=== PATIENT | male | born 1970 | race Caucasian/White ===

== ENCOUNTER 2022-02-10 09:24 | Inpatient (IN) | payer MEDICAID, SELFPAY ==
[2022-02-10] VITALS (33 sets, daily range): BP systolic 134–213; BP diastolic 91–119; PULSE 61–100; RESP 14–26; TEMP 36.7–37.7; O2SAT 94–98; BMI 24.3
--- NOTE | 2022-02-10 09:31 | CTR_ITS ---
PROCEDURE INFORMATION: Exam: CT Head Without Contrast Exam date and time: 02/10/2022 9:28 AM Age: 51 years old Clinical indication: Weakness, extremity; Right; Additional info: Right sided weakness TECHNIQUE: Imaging protocol: Computed tomography of the head without contrast. Radiation optimization: All CT scans at this facility use at least one of these dose optimization techniques: automated exposure control; mA and/or kV adjustment per patient size (includes targeted exams where dose is matched to clinical indication); or iterative reconstruction. COMPARISON: No relevant prior studies available. RADIATION DOSE METRICS: Total DLP (mGy-cm): 740.4 FINDINGS: Brain: There is suspected old infarct involving the right frontal lobe medially just anterior to the lateral ventricle. Questionable old infarct involving the left basal ganglia. There is mild atrophy and small vessel ischemic changes. There is no intracranial blood. Cerebral ventricles: No ventriculomegaly. Paranasal sinuses: Visualized sinuses are unremarkable. No fluid levels. Mastoid air cells: Visualized mastoid air cells are well aerated. Bones/joints: Unremarkable. No acute fracture. Soft tissues: Unremarkable. CT/CT head wo con* [id number] IMPRESSION: Chronic changes with no acute intracranial blood. Given the findings consider MRI to evaluate for an acute area of ischemia.
--- NOTE | 2022-02-10 09:42 | ECG_ITS ---
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 Measurements Intervals [place] Rate: 74 P: 53 WA: 170 QRS: 61 QRSD: 89 T: 71 QT: 385 QTc: 430 Interpretive Statements SINUS RHYTHM No previous ECG available for comparison Electronically Signed On 02-10-2022 12:39:08 CDT by Yoli Lopez M.D. [id number]
--- NOTE | 2022-02-10 09:46 | ED_ITS ---
HPI - Neuro Symptoms/Deficit General: Chief Complaint: Neuro Symptoms/Deficit Stated Complaint: RIGHT SIDED WEAKNESS Time Seen by Provider: 02/10/22 09:42 History of Present Illness: 51 year-old male presents emergency room via EMS with accelerated hypertension and right-sided deficits that are quite dense this began yesterday at 3 PM and has persisted. He has significant facial paralysis some dysarthria significant weakness and drift in his right arm and leg with ataxia in both limbs. He has some mild sensory loss as well. He is a smoker he is not diabetic he has not previously had a stroke he does have a known history of hypertension he denies any chest pain or shortness of breath no abdominal pain essentially denies any other symptoms. Symptoms began yesterday he had thought they would resolve on their own so he did not seek evaluation until this morning. At the time of presentation he is 18 1/2 hours out from onset Onset (ago): hour(s) Time: 09:24 Location: speech, right face, dysarthria, right arm, right leg and ataxia History of same: No Severity: severe Quality: weak Relieving factors: none Exacerbating factors: none Context: sudden onset On Anticoagulants: No Associated symptoms: Deny chest pain, cough, diaphoresis, fevers/chills, headache(s), anorexia, malaise, nausea, seizures, short of breath, syncope, tingling, vertigo, vomiting or weakness Treatments Prior to Arrival: none Review of Systems Const: Denies: fever(s), chills, malaise or diaphoresis ENMT: Denies: throat pain, ear or mastoid pain, nasal discharge or nasal congestion Card: Denies: chest pain, palpitations, irregular heart rhythm or syncope Resp: Denies: dyspnea, productive cough or non-productive cough GI: Denies: abdominal pain, nausea or vomiting : Denies: flank pain, difficulty urinating, dysuria, urinary frequency or urinary urgency Musc: Denies: neck pain or back pain Skin/Breast: Denies: rash or pruritus Neuro: Denies: headache(s) or vertigo PFS ED PFSH: Medical History (Updated 02/10/22 @ 11:55 by Jimmy Isaacs DO) Hypertension Social History (Updated 02/10/22 @ 09:50 by Jimmy Isaacs DO) Smoking and tobacco status: current every day smoker Alcohol intake: never NIH stroke score NIHSS: Level Of Consciousness - 1a: 0 Level Of Consciousness Questions - 1b: Both Correct Level Of Consciousness Commands - 1c: Both Correct Best Gaze - 2: Normal Visual [place]aley - 3: No Visual Loss Facial Palsy - 4: Partial Paralysis Motor Arm Right - 5: Effort Against [place] Motor Arm Left - 5: No Drift Motor Leg Right - 6: Effort Against [place] Motor Leg Left - 6: No Drift Limb Ataxia - 7: Present In Two Limbs Sensory - 8: Mild To Moderate Loss Best Language - 9: No Aphasia Dysarthia - 10: Mild/Moderate Dysarthia Extinction And Inattention - 11: 0 Score: Total Score: 10 Physical Exam Const: COMMON NORMALS: no acute distress GENERAL APPEARANCE: cooperative and comfortable ORIENTATION/CONSCIOUSNESS: Yes awake, Yes oriented to person, Yes oriented to place and Yes oriented to time HENMT: COMMON NORMALS: normocephalic, atraumatic, hearing grossly normal bilaterally, external ears normal, EAC's normal, TM's normal bilaterally, Normal nasal mucous membranes and turbinates present, moist oral mucous membranes and oropharynx normal HEAD & SCALP: normocephalic and atraumatic NOSE: Normal nasal mucous membranes and turbinates present EXTERNAL EAR: Yes external ears normal EXTERNAL AUDITORY CANAL: EAC's normal TYMPANIC MEMBRANE: TM's normal bilaterally Eye: COMMON NORMALS: Equal, round and reactive pupils present, EOMs intact bilaterally, conjunctivae normal and no scleral icterus CONJUNCTIVA: Yes conjunctivae normal PUPIL: Yes Equal, round and reactive pupils present Neck/C-Spine: COMMON NORMALS: full ROM, no lymphadenopathy, supple and no JVD Resp: COMMON NORMALS: normal respiratory effort, No retractions, No use of accessory muscles and clear to auscultation bilaterally AUSCULTATION: clear to auscultation bilaterally Cardio: COMMON NORMALS: no JVD, regular rate, regular rhythm and No murmurs present (Cardio) RATE: regular rate RHYTHM: regular rhythm GI: COMMON NORMALS: Soft to palpation and No hepatosplenomegaly present AUSCULTATION: Yes normoactive bowel sounds PALPATION: Yes Soft to palpation, No Tenderness to palpation present (GI), No Guarding due to palpation present (GI) and Yes No hepatosplenomegaly present Extremity: COMMON NORMALS: normal to inspection, capillary refill normal, no clubbing, cyanosis or edema, no calf tenderness and no pedal edema Neuro: SENSORIUM/ORIENTATION: Yes oriented to person, Yes oriented to place and Yes oriented to time OTHER: See NIH score Skin: COMMON NORMALS: no rashes or lesions noted GENERAL SKIN EXAM: no rashes or lesions noted Course Vital Signs: Vital signs: Vital Signs Temperature 98.0 F 02/10/22 09:30 Pulse Rate 85 02/10/22 10:22 Respiratory Rate 18 02/10/22 10:22 Blood Pressure 190/102 02/10/22 10:22 Pulse Oximetry 98 02/10/22 10:22 MDM - Neuro Symptoms/Deficit Medical Decision Making Acute CVA most likely the left middle cerebral artery. Patient's symptoms are dense and persistent. For a brief time we had him on nicardipine as his blood pressure was in excess of 200 we titrated that down and then off when his blood pressure began to decrease his pressure remained stable after it was stopped. He has not had any change in his neurologic deficits no improvement or worsening. Stroke score is 10 but he doubts that the timeframe for any thrombolytics and he is not have an embolism on CTA head and neck. Discussed with hospitalist orders written Medical Records I reviewed the patient's medical records. Lab Data I reviewed the patient's lab results. : 02/10/22 08:55 02/10/22 08:[address] 02/10/22 09:31 IMPRESSION: Chronic changes with no acute intracranial blood. Given the findings consider MRI to evaluate for an acute area of ischemia. Head/Neck CTA 02/10/22 09:57 IMPRESSION: No large vessel occlusion. Unremarkable CT head. IMPRESSION: 1. No arterial abnormality. 2. Obscuration of the posterior aspect of the oropharynx. REFERENCES: NASCET CRITERIA. The degree of internal carotid artery stenosis is based on NASCET criteria. Normal is no stenosis. Mild is less than 50% stenosis. Moderate is 50-69% stenosis. Severe is 70% to 99% stenosis. Total occlusion is no detectable patent lumen. Laboratory Results WBC 10.9 10^3/uL (4.0-10.0) H 02/10/22 08:55 RBC 5.55 10^6/uL (4.1-5.3) H 02/10/22 08:55 Hgb 16.8 g/dL (11.7-16.6) H 02/10/22 08:55 Hct 49.3 % (42.0-52.0) 02/10/22 08:55 MCV 88.8 fl (80-94) 02/10/22 08:55 MCH 30.3 pg (28.0-34.0) 02/10/22 08:55 MCHC 34.1 g/dL (30.0-36.0) 02/10/22 08:55 RDW 13.2 % (12.1-15.1) 02/10/22 08:55 Plt Count 384 10^3/cmm (130-400) 02/10/22 08:55 MPV 10.4 fL (7.4-10.4) 02/10/22 08:55 Neut % (Auto) 78.8 % 02/10/22 08:55 Lymph % (Auto) 15.0 % 02/10/22 08:55 [place] % (Auto) 4.9 % 02/10/22 08:55 Eos % (Auto) 0.5 % 02/10/22 08:55 Baso % (Auto) 0.4 % 02/10/22 08:55 Neut # (Auto) 8.62 10^3/uL (1.8-7.7) H 02/10/22 08:55 Lymph # (Auto) 1.6 10^3/uL (0.8-4.8) 02/10/22 08:55 [place] # (Auto) 0.5 10^3/uL (0.2-0.9) 02/10/22 08:55 Eos # (Auto) 0.1 10^3/uL (0.0-0.8) 02/10/22 08:55 Baso # (Auto) 0.0 10^3/uL (0.0-0.1) 02/10/22 08:55 Nucleated RBC % (auto) 0 % 02/10/22 08:55 Nucleated RBCs # 0.0 /100WBC 02/10/22 08:55 PT 13.60 SECONDS (12.1-14.9) 02/10/22 08:55 INR 1.01 (0.8-1.2) 02/10/22 08:55 APTT 33.9 SECONDS (23.9-36.7) 02/10/22 08:55 Sodium 136 mmol/L (136-145) 02/10/22 08:55 Potassium 3.7 mmol/L (3.5-5.1) 02/10/22 08:55 Chloride 96 mmol/L (98-107) L 02/10/22 08:55 Carbon Dioxide 26 mmol/L (22-29) 02/10/22 08:55 Anion Gap 17.7 (5-19) 02/10/22 08:55 BUN 10 mg/dL (6-20) 02/10/22 08:55 Creatinine 0.8 mg/dL (0.7-1.2) 02/10/22 08:55 GFR Calculation 101.9 mL/min (90-130) 02/10/22 08:55 Glucose 128 mg/dL (65-115) H 02/10/22 08:55 POC Glucose 115 mg/dL (70-110) H 02/10/22 10:26 Calculated Osmolality 283 mOsm/kg (285-295) L 02/10/22 08:55 Calcium 9.7 mg/dL (8.5-10.5) 02/10/22 08:55 Total Bilirubin 0.5 mg/dL (0.15-1.2) 02/10/22 08:55 AST 19 U/L (0-40) 02/10/22 08:55 ALT 21 U/L (0-41) 02/10/22 08:55 Alkaline Phosphatase 92 IU/L (40-130) 02/10/22 08:55 Total Protein 8.1 g/dL (6.6-8.7) 02/10/22 08:55 Albumin 4.8 g/dL (3.5-5.2) 02/10/22 08:55 Globulin 3.3 g/dL (1.3-4.6) 02/10/22 08:55 Urine Color Colorless (Yellow) 02/10/22 10:51 Urine Appearance Clear (CLEAR) 02/10/22 10:51 Urine pH 8 (5-7) H 02/10/22 10:51 Ur Specific [place] 1.010 (1.005-1.030) 02/10/22 10:51 Urine Protein Neg (Negative) 02/10/22 10:51 Urine Glucose (UA) Norm (Normal) 02/10/22 10:51 Urine Ketones Negative (Negative) 02/10/22 10:51 Urine Blood Neg (Negative) 02/10/22 10:51 Urine Nitrate Negative (Negative) 02/10/22 10:51 Urine Bilirubin Neg (Negative) 02/10/22 10:51 Prot Sulfosalicylic Acd Negative (Negative) 02/10/22 10:51 Urine Urobilinogen Norm mg/dL (Negative) 02/10/22 10:51 Ur Leukocyte Esterase Negative (Negative) 02/10/22 10:51 Urine Opiates Screen Negative ng/mL (Negative) 02/10/22 10:51 Ur Barbiturates Screen Negative ng/mL (Negative) 02/10/22 10:51 Ur Phencyclidine Scrn Negative ng/mL (Negative) 02/10/22 10:51 Ur Amphetamines Screen Negative ng/mL (Negative) 02/10/22 10:51 U Benzodiazepines Scrn Negative ng/mL (Negative) 02/10/22 10:51 Urine Cocaine Screen Negative ng/mL (Negative) 02/10/22 10:51 U Marijuana (THC) Screen Positive ng/mL (Negative) H 02/10/22 10:51 Discharge Plan Discharge Patient Disposition: Admitted As Inpatient Admit Provider: Robert Garcia Clinical Impression: Cerebrovascular accident, Hypertension Condition: Stable Coding Level of Care Code 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
[2022-02-10] MEDS: nicardipine 20 MG/200 ML PREMIX 50 MG IV (09:53)
--- NOTE | 2022-02-10 09:57 | CTR_ITS ---
PROCEDURE INFORMATION: Exam: CT Angiography Head Without And With Contrast, Arteriography Exam date and time: 02/10/2022 10:10 AM Age: 51 years old Clinical indication: Weakness; Additional info: CVA TECHNIQUE: Imaging protocol: Computed tomographic angiography of the head without and with contrast. Exam focused on the arteries. 3D rendering (Not supervised by radiologist): MIP and/or 3D reconstructed images were created by the technologist. Radiation optimization: All CT scans at this facility use at least one of these dose optimization techniques: automated exposure control; mA and/or kV adjustment per patient size (includes targeted exams where dose is matched to clinical indication); or iterative reconstruction. Contrast material: OMNI 300; Contrast volume: 95 ml; Contrast route: INTRAVENOUS (IV); COMPARISON: CT head wo con* [id number] 02/10/2022 9:28 AM RADIATION DOSE METRICS: Total DLP (mGy-cm): 2429.94 FINDINGS: ANTERIOR CIRCULATION: Right internal carotid artery: Intracranial segment is patent with no significant stenosis or occlusion. No aneurysm. Right middle cerebral artery: No occlusion or significant stenosis. No aneurysm. Right anterior cerebral artery: No occlusion or significant stenosis. No aneurysm. Left internal carotid artery: Intracranial segment is patent with no significant stenosis. No aneurysm. Left middle cerebral artery: No occlusion or significant stenosis. No aneurysm. Left anterior cerebral artery: No occlusion or significant stenosis. No aneurysm. POSTERIOR CIRCULATION: Right vertebral artery: No occlusion or significant stenosis. No aneurysm. Left vertebral artery: No occlusion or significant stenosis. No aneurysm. Basilar artery: No occlusion or significant stenosis. No aneurysm. Right posterior cerebral artery: No occlusion or significant stenosis. No aneurysm. Left posterior cerebral artery: Persistent circulation on the left with a normal posterior cerebral artery. PROCEDURE INFORMATION: Exam: CT Angiography Neck Without And With Contrast Exam date and time: 02/10/2022 10:10 AM Age: 51 years old Clinical indication: Weakness; Additional info: CVA TECHNIQUE: Imaging protocol: Computed tomographic angiography of the neck without and with contrast. 3D rendering (Not supervised by radiologist): MIP and/or 3D reconstructed images were created by the technologist. Radiation optimization: All CT scans at this facility use at least one of these dose optimization techniques: automated exposure control; mA and/or kV adjustment per patient size (includes targeted exams where dose is matched to clinical indication); or iterative reconstruction. Contrast material: OMNI 300; Contrast volume: 95 ml; Contrast route: INTRAVENOUS (IV); COMPARISON: CT head wo con* [id number] 02/10/2022 9:28 AM RADIATION DOSE METRICS: Total DLP (mGy-cm): 2429.94 FINDINGS: Right common carotid artery: No stenosis. No dissection or occlusion. Right internal carotid artery: No stenosis of the extracranial segment. No dissection or occlusion. Right external carotid artery: No occlusion or stenosis of the origin. Left common carotid artery: No stenosis. No dissection or occlusion. Left internal carotid artery: No stenosis of the extracranial segment. No dissection or occlusion. Left external carotid artery: No occlusion or stenosis of the origin. Right vertebral artery: No stenosis. No dissection or occlusion. Left vertebral artery: No stenosis. No dissection or occlusion. Oropharynx: Obscuration of most of the oropharynx which could be due to swallowing or phonation during scanning. Please clinically correlate. Thyroid: 6 mm hypodensity involving the right lobe of the thyroid likely colloid cyst. Soft tissues: Normal. No significant soft tissue swelling. Bones/joints: No acute fracture. CT/CT angio headneck* [id number] IMPRESSION: No large vessel occlusion. Unremarkable CT head. IMPRESSION: 1. No arterial abnormality. 2. Obscuration of the posterior aspect of the oropharynx. REFERENCES: NASCET CRITERIA. The degree of internal carotid artery stenosis is based on NASCET criteria. Normal is no stenosis. Mild is less than 50% stenosis. Moderate is 50-69% stenosis. Severe is 70% to 99% stenosis. Total occlusion is no detectable patent lumen.
[2022-02-10 10:08] LABS: Basophils % 0.4 %; Eosinophils # 0.1 10^3/uL (0.0-0.8); Eosinophils % 0.5 %; Hematocrit 49.3 % (42.0-52.0); Hemoglobin 16.8 g/dL (11.7-16.6); Lymphocytes # 1.6 10^3/uL (0.8-4.8); Mean Corpuscular HGB Conc 34.1 g/dL (30.0-36.0); Mean Corpuscular Hemoglobin 30.3 pg (28.0-34.0); Mean Corpuscular Volume 88.8 fl (80-94); Mean Platelet Volume 10.4 fL (7.4-10.4); Monocytes # 0.5 10^3/uL (0.2-0.9); Monocytes % 4.9 %; Neutrophils # 8.62 10^3/uL (1.8-7.7); Neutrophils % 78.8 %; Nucleated Red Blood Cells % 0 %; Platelet Count 384 10^3/cmm (130-400); Red Blood Count 5.55 10^6/uL (4.1-5.3); Red Cell Distribution Width 13.2 % (12.1-15.1); White Blood Count 10.9 10^3/uL (4.0-10.0)
[2022-02-10] MEDS: iohexol 300 mg/mL 100 mL Btl IV (10:09)
[2022-02-10 10:13] LABS: INR 1.01 (0.8-1.2)
[2022-02-10 10:14] LABS: Partial Thromboplastin Time 33.9 SECONDS (23.9-36.7)
[2022-02-10 10:20] LABS: Alanine Aminotransferase 21 U/L (0-41); Albumin Level 4.8 g/dL (3.5-5.2); Alkaline Phosphatase 92 IU/L (40-130); Anion Gap 17.7 (5-19); Aspartate Amino Transferase 19 U/L (0-40); Blood Urea Nitrogen 10 mg/dL (6-20); Calcium 9.7 mg/dL (8.5-10.5); Carbon Dioxide 26 mmol/L (22-29); Chloride 96 mmol/L (98-107); Globulin 3.3 g/dL (1.3-4.6); Glomerular Filtration Rate 101.9 mL/min (90-130); Glucose 128 mg/dL (65-115); Osmolality Calculated 283 mOsm/kg (285-295); Potassium 3.7 mmol/L (3.5-5.1); Sodium 136 mmol/L (136-145); Total Bilirubin 0.5 mg/dL (0.15-1.2); Total Protein 8.1 g/dL (6.6-8.7)
[2022-02-10 10:28] LABS: Glucose Point of Care 115 mg/dL (70-110)
[2022-02-10 10:57] LABS: Add Urine Microscopic? NO; Charge for UA Resulting for Rev
[2022-02-10 11:01] LABS: Bilirubin Urine Neg (Negative); Blood Urine Neg (Negative); Glucose Urine UA Norm (Normal); Ketones Urine Negative (Negative); Leukocyte Esterase Urine Negative (Negative); Nitrate Urine Negative (Negative); Protein Urine Neg (Negative); Sulfosalicylic Acid Urine Negative (Negative); Urine Appearance Clear (CLEAR); Urine Color Colorless (Yellow); Urobilinogen Urine Norm (Negative); pH Urine 8 (5-7)
[2022-02-10 11:07] LABS: Amphetamines Screen Urine Negative (Negative); Barbiturates Screen Urine Negative (Negative); Benzodiazepines Screen Urine Negative (Negative); Cocaine Screen Urine Negative (Negative); Opiate Screen Urine Negative (Negative); PCP Screen Urine Negative (Negative); THC Screen Urine Positive (Negative)
--- NOTE | 2022-02-10 12:50 | P.HP_ITS ---
Providers/Chief Complaint Admitting Physician: Robert Garcia MD Chief Complaint: RIGHT SIDED WEAKNESS History of Present Illness Eran Shi is a 51 year old male with no significant past medical history was brought in with chief complaint of acute onset of right upper extremity weakness started yesterday around noon and since then it has progressively worsened, He is also having slurred speech. Currently denies any chest pain shortness of breath palpitation headache dizziness nausea vomiting, bowel or bladder dysfunction. Upon arrival in the ER he was worked up for movements and complaint: Pertinent imaging studies: CT head without contrast: There is suspected old infarct involving the right frontal lobe medially just anterior to the lateral ventricle. Questionable old infarct, involving the left basal ganglia. There is mild atrophy and small vessel ischemic changes. There is no intracranial blood. CTA head and neck:No large vessel occlusion. EKG: Sinus rhythm Pertinent labs: WBC 10.9, H&H 16.8 / 49.3 , PLT : 384 , serum sodium 136 and potassium 3.7 BUN/ serum creatinine 10/0.8, random blood sugar 128 Urinalysis clean, U tox positive for marijuana Review of Systems General: Reports: 10 or more systems reviewed and unremarkable except in HPI and below Const: Denies: fever(s), chills, body aches, change in appetite or diaphoresis Card: Denies: palpitations, edema, swelling of feet/ankles, dyspnea on exertion, orthopnea or leg pain with exertion Resp: Denies: dyspnea, productive cough, wheezing or pain on inspiration GI: Denies: abdominal pain, nausea, vomiting, diarrhea or constipation : Denies: flank pain or difficulty urinating Musc: Denies: back pain, extremity pain or extremity swelling Neuro: Denies: headache(s) or confusion Medications/Allergies Home Medications Medication Instructions Recorded Confirmed Last Taken Type No Known Home Medications 02/10/22 02/10/22 Unknown History Allergies Allergy/AdvReac Type Severity Reaction Status Date / Time Penicillins Allergy Unknown Unknown Verified 02/10/22 10:56 PFSH Acute PFSH: Medical History (Updated 02/10/22 @ 11:55 by Jimmy Isaacs DO) Hypertension Social History (Updated 02/10/22 @ 09:50 by Jimmy Isaacs DO) Smoking and tobacco status: current every day smoker Alcohol intake: never Vitals/I&O/Wt Last Vital Signs Temp 98.0 F 02/10/22 09:30 Pulse 85 02/10/22 10:22 Resp 18 02/10/22 10:22 BP 190/102 02/10/22 10:22 Pulse Ox 98 02/10/22 10:22 02/09/22 02/10/22 02/10/22 22:59 06:59 14:59 Intake Total 59.167 / 59.167 Balance 59.167 / 59.167 Weight last 48 hrs Weight 77.111 kg Physical Exam Const: COMMON NORMALS: patient oriented x3 HENMT: COMMON NORMALS: normocephalic and atraumatic HEAD & SCALP: normocephalic and atraumatic Chest: CHEST: Yes Symmetrical chest wall rise Resp: COMMON NORMALS: normal respiratory effort, No retractions, No use of accessory muscles and clear to auscultation bilaterally EFFORT & INSPECTION: Yes symmetric chest movement AUSCULTATION: clear to auscultation bilaterally Cardio: COMMON NORMALS: regular rate, regular rhythm, S1 normal heart sound present, S2 normal heart sound present, No gallops present (Cardio), No murmurs present (Cardio), No rub (Cardio) and Peripheral pulses 2+ throughout RATE: regular rate RHYTHM: regular rhythm HEART SOUNDS: S1 normal heart sound present and S2 normal heart sound present PERIPHERAL PULSES: Peripheral pulses 2+ throughout GI: COMMON NORMALS: Normal to inspection, nondistended, normoactive bowel sounds present, Soft to palpation, non-tender, No hepatosplenomegaly present and no masses AUSCULTATION: Yes normoactive bowel sounds PALPATION: Yes Soft to palpation and Yes No hepatosplenomegaly present RECTAL EXAM: Yes deferred Extremity: COMMON NORMALS: no clubbing, cyanosis or edema and no pedal edema Neuro: COMMON NORMALS: patient oriented x3 OTHER: Rt Upper Extremity power 0/5, rest power and sensations intact. Data : 02/10/22 08:55 02/10/22 08:55 A&P Assessment and plan (1) Cerebrovascular accident: Status: Acute Plan 51 year old male with no significant past medical history was brought in with chief complaint of acute onset of right upper extremity weakness started yest erday around noon and since then it has progressively worsened, He is also having slurred speech. Assessment #Acute CVA: With right Upper extremity weakness. CT head without contrast: There is suspected old infarct involving the right frontal lobe medially just anterior to the lateral ventricle. Questionable old infarct, involving the left basal ganglia. There is mild atrophy and small vessel ischemic changes. There is no intracranial blood. CTA head and neck:No large vessel occlusion. MRI brain without contrast EKG: Sinus rhythm 2D echo with bubble study Aspirin 81 mg p.o. daily Lipitor 40 mg po daily PT OT evaluation Speech evaluation Permissive hypertension Telemetry Possible KHAI Possible event monitor #DVT prophylaxis: On Lovenox #CODE STATUS: Full code #Disposition: Home versus/rehab Attestations Medical Necessity Statement*: Patient is in hospital for management of acute CVA. Anticipated length of stay greater than 2 midnights Time Spent in Patient Care: Greater than 35 minutes (>than 50% of time spen t in counselling and/or direct pt care on unit) . Critical Care Time: The high probability of a clinically significant, sudden or life threatening deterioration of the patient's [] system(s) required my full and direct attention, intervention and personal management. The critical care time is as shown. This time is in addition to time spent performing any reported procedures but includes the following: [x] Data and vital sign review and interpretation [x] Patient assessment, examination and intervention [x] Documentation [x] Medication orders and management Critical Care Time (min): 35 Coding Level of Care Code Acute Automation Technologist for Jasper Fwnixon Exam Detailed Diagnoses Cerebrovascular accident I63.9
--- NOTE | 2022-02-10 12:52 | USCV_ITS ---
Eran Shi Age: 51 Gender: M : 1970 Exam Date: 02/10/2022 13:23 Ordering Phys: Robert Garcia MD Technologist: ANEL Exam Location: [facility] – [place] Indication: ECHO WITH BUBBLES TO EVALUATE FOR PFO, AC STROKE BP: 159 / 106 HR: 72 Rhythm: Sinus Technical Quality: Adequate MEASUREMENTS (Male / Female) Normal Values 2D ECHO LV Diastolic Diameter PLAX 4.1 cm 4.2 - 5.9 / 3.9 - 5.3 cm LV Systolic Diameter PLAX 2.5 cm IVS Diastolic Thickness 1.3 cm 0.6 - 1.0 / 0.6 - 0.9 cm IVS Systolic Thickness 1.9 cm LVPW Diastolic Thickness 1.5 cm 0.6 - 1.0 / 0.6 - 0.9 cm LVPW Systolic Thickness 1.9 cm LVOT Diameter 2.0 cm LV Ejection Fraction 2D Teich 69.4 % LV Ejection Fraction MOD 2C 55.3 % LV Ejection Fraction 2C AL 56.8 % LA Diameter 2.5 cm LA Width 2.7 cm LA Height 2.8 cm RA Width 2.8 cm RA Height 3.6 cm Aorta at Sinotubular Diameter 2.7 cm IVC Diameter 1.3 cm M-MODE Aortic Annulus Diameter 3.0 cm LA Ao Ratio MM 0.7 MV E Point Septal Separation 0.7 cm DOPPLER AV Peak Velocity 119.0 cm/s LVOT Peak Velocity 93.0 cm/s AV Area Cont Eq vti 2.9 cm squared AV Area Cont Eq pk 2.5 cm squared MV Area PHT 3.5 cm squared Mitral E to A Ratio 0.9 MV E' Velocity 34.0 cm/s Mitral E to MV E' Ratio 7.2 Mitral E to LV E' Lateral Ratio 6.8 Mitral E to LV E' Septal Ratio 7.6 TV Peak E Velocity 31.0 cm/s Right Atrial Pressure 3.0 mmHg PV Peak Velocity 85.0 cm/s RV Acceleration Time 0.1 s RV Ejection Time 0.3 s RV AcT/ET 0.3 FINDINGS Left Ventricle Normal left ventricular size, systolic function and wall thickness, with no regional wall motion abnormalities. Left ventricular ejection fraction is estimated at 65 %. Normal diastolic function. Right Ventricle Normal right ventricular size and systolic function. Normal pulmonary artery pressure. Right Atrium Normal right atrial size. Right atrial pressure estmated at 3 mm Hg. Left Atrium Normal left atrial size. Bubble (agitated saline) study is suggestive of intracardiac shunt. Mitral Valve Structurally normal mitral valve. No mitral valve stenosis. No mitral valve regurgitation. Aortic Valve Structurally normal trileaflet aortic valve. No aortic valve stenosis. No aortic valve regurgitation. Tricuspid Valve Structurally normal tricuspid valve. Trace tricuspid valve regurgitation. Pulmonic Valve Structurally normal pulmonic valve. No pulmonary valve stenosis. Trace pulmonary valve regurgitation. Pericardium No pericardial effusion. Aorta Normal size aortic root and proximal ascending aorta. Normal sized inferior vena cava. CONCLUSIONS 1. Normal left ventricular size, systolic function and wall thickness, with no regional wall motion abnormalities. Left ventricular ejection fraction is estimated at 65 %. Normal diastolic function. 2. Bubble (agitated saline) study is suggestive of intracardiac shunt. 3. No prior similar studies to compare. Yoli Lopez MD (Electronically Signed) Final Date: 10 Feb 2022 20:41 S
[2022-02-10] MEDS: aspirin 325 mg Tablet PO (13:54)
[2022-02-10] MEDS: nicotine 14 mg Patch 1 PATCH TRANSDERMA (20:06)
[2022-02-10] MEDS: atorvastatin 40 mg Tablet PO (20:06)
[2022-02-11] VITALS (34 sets, daily range): BP systolic 142–196; BP diastolic 88–138; PULSE 58–93; RESP 13–24; TEMP 36.6–37.1; O2SAT 93–98
[2022-02-11 06:10] LABS: Basophils % 0.4 %; Eosinophils # 0.2 10^3/uL (0.0-0.8); Eosinophils % 2.5 %; Hematocrit 46.7 % (42.0-52.0); Hemoglobin 15.9 g/dL (11.7-16.6); Lymphocytes # 1.7 10^3/uL (0.8-4.8); Lymphocytes % 22.4 %; Mean Corpuscular Hemoglobin 30.9 pg (28.0-34.0); Mean Corpuscular Volume 90.7 fl (80-94); Monocytes # 0.7 10^3/uL (0.2-0.9); Monocytes % 9.3 %; Neutrophils # 4.96 10^3/uL (1.8-7.7); Neutrophils % 65.3 %; Nucleated Red Blood Cells % 0 %; Platelet Count 325 10^3/cmm (130-400); Red Blood Count 5.15 10^6/uL (4.1-5.3); Red Cell Distribution Width 13.5 % (12.1-15.1); White Blood Count 7.6 10^3/uL (4.0-10.0)
[2022-02-11 06:31] LABS: Estmated Average Glucose 108; Hemoglobin A1C 5.4 % (4.0-6.0)
[2022-02-11 06:34] LABS: Alanine Aminotransferase 16 U/L (0-41); Albumin Level 4.2 g/dL (3.5-5.2); Alkaline Phosphatase 82 IU/L (40-130); Anion Gap 15.2 (5-19); Aspartate Amino Transferase 14 U/L (0-40); Blood Urea Nitrogen 12 mg/dL (6-20); Calcium 9.7 mg/dL (8.5-10.5); Carbon Dioxide 27 mmol/L (22-29); Chloride 101 mmol/L (98-107); Chol HDL Ratio 6.54 mg/dL (1.0-5.00); Cholesterol 183 mg/dL (0-200); Globulin 2.6 g/dL (1.3-4.6); Glomerular Filtration Rate 101.9 mL/min (90-130); Glucose 105 mg/dL (65-115); HDL Cholesterol 28 mg/dL (60-100); LDL Cholesterol Calculated 128 mg/dL (50-129); LDL HDL Ratio 4.57 RATIO (0.00-3.22); Magnesium 2.3 mg/dL (1.7-2.3); Osmolality Calculated 288 mOsm/kg (285-295); Potassium 4.2 mmol/L (3.5-5.1); Sodium 139 mmol/L (136-145); Total Bilirubin 0.5 mg/dL (0.15-1.2); Total Protein 6.8 g/dL (6.6-8.7); Triglycerides 135 mg/dL (0-150)
--- NOTE | 2022-02-11 07:53 | USR_ITS ---
PROCEDURE INFORMATION: Exam: US Duplex Lower Extremity Veins, Bilateral Exam date and time: 02/11/2022 9:32 AM Age: 51 years old Clinical indication: Edema, localized; Lower extremity, bilateral; Patient HX: CVA RT side; Additional info: R/O dvt TECHNIQUE: Imaging protocol: Real-time Duplex ultrasound of the bilateral extremities with 2-D dolan scale, color Doppler flow and spectral waveform analysis with image documentation. Complete exam focused on the bilateral lower extremity veins. COMPARISON: No relevant prior studies available. FINDINGS: Right deep veins: The common femoral, femoral, popliteal, and calf veins are patent without thrombus. Right superficial veins: Saphenofemoral junction is patent without thrombus. Left deep veins: The common femoral, femoral, popliteal, and calf veins are patent without thrombus. Left superficial veins: Saphenofemoral junction is patent without thrombus. Soft tissues: Unremarkable. US/[id number] IMPRESSION: No evidence of deep vein thrombosis in the right or left lower extremity.
[2022-02-11] MEDS: aspirin 81 mg EC Tablet PO (08:31)
--- NOTE | 2022-02-11 10:06 | PM.PN ---
Subjective Subjective: Patient was seen and examined this morning, right lower extremity weakness has mostly remained unchanged, currently on dysphagia diet, working with physical therapy and Occupational Therapy. Medications: Medication Review Details: Generic Name Dose Route Start Last Admin Trade Name Lashell PRN Reason Stop Dose Admin Aspirin 81 mg 02/11/22 09:00 02/11/22 08:31 Aspirin 81 Mg Ec Tablet PO 81 mg DAILY MARVIN Administration Atorvastatin Calci um 40 mg 02/10/22 21:00 02/10/22 20:06 Atorvastatin 40 Mg Tablet PO 40 mg BEDTIME MARVIN Administration Nicotine 1 patch 02/10/22 19:36 02/10/22 20:06 Nicotine 14 Mg P atch TRANSDERMA 1 patch DAILY PRN Administration WITHDRAWAL Vitals/I&O/Wt Last Vital Signs Temp 99.9 F H 02/10/22 13:45 Pulse 72 02/11/22 06:00 Resp 18 02/11/22 06:00 BP 149/88 02/11/22 06:00 Pulse Ox 98 02/11/22 06:00 02/10/22 02/11/22 02/11/22 22:59 06:59 14:59 Intake Total 360 / 419.167 240 / 659.167 360 / 360 Output Total 350 / 350 Balance 360 / 419.167 240 / 659.167 10 / 10 Weight last 48 hrs Weight 77.111 kg Physical Exam Const: COMMON NORMALS: patient oriented x3 HENMT: COMMON NORMALS: normocephalic and atraumatic HEAD & SCALP: normocephalic and atraumatic Chest: CHEST: Yes Symmetrical chest wall rise Resp: COMMON NORMALS: normal respiratory effort, No retractions, No use of accessory muscles and clear to auscultation bilaterally EFFORT & INSPECTION: Yes symmetric chest movement AUSCULTATION: clear to auscultation bilaterally Cardio: COMMON NORMALS: regular rate, regular rhythm, S1 normal heart sound present, S2 normal heart sound present, No gallops present (Cardio), No murmurs present (Cardio), No rub (Cardio) and Peripheral pulses 2+ throughout RATE: regular rate RHYTHM: regular rhythm HEART SOUNDS: S1 normal heart sound present and S2 normal heart sound present PERIPHERAL PULSES: Peripheral pulses 2+ throughout GI: COMMON NORMALS: Normal to inspection, nondistended, normoactive bowel sounds present, Soft to palpation, non-tender, No hepatosplenomegaly present and no masses AUSCULTATION: Yes normoactive bowel sounds PALPATION: Yes Soft to palpation and Yes No hepatosplenomegaly present RECTAL EXAM: Yes deferred Extremity: COMMON NORMALS: no clubbing, cyanosis or edema and no pedal edema Neuro: COMMON NORMALS: patient oriented x3 OTHER: Rt Upper Extremity power 0/5, rest power and sensations intact. Data : 02/11/22 05:40 02/11/22 05:40 A&P Assessment and plan (1) Cerebrovascular accident: Status: Acute Plan 51 year old male with no significant past medical history was brought in with chief complaint of acute onset of right upper extremity weakness started yesterday around noon and since then it has progressively worsened, He is also having slurred speech. Assessment #Acute CVA: With right Upper extremity weakness. CT head without contrast: There is suspected old infarct involving the right frontal lobe medially just anterior to the lateral ventricle. Questionable old infarct, involving the left basal ganglia. There is mild atrophy and small vessel ischemic changes. There is no intracranial blood. CTA head and neck:No large vessel occlusion. MRI brain without contrast: EKG: Sinus rhythm 2D echo with bubble study:Normal left ventricular size, systolic function and wall thickness, with no regional wall motion abnormalities. Left ?ventricular ejection fraction is estimated at 65 %. Normal diastolic function.is suggestive of intracardiac shunt. Aspirin 81 mg p.o. daily Plavix 75 mg p.o. daily Lipitor 40 mg po daily Amlodipine 10 mg p.o. daily from tomorrow morning. PT OT evaluation Speech evaluation Permissive hypertension for 48 to 72 hours. Bilateral lower extremity Doppler vein: Negative for DVT Telemetry KHAI likely on Saturday Possible event monitor #DVT prophylaxis: On Lovenox #CODE STATUS: Full code #Disposition: Family wants to take patient home. Attestations Medical Necessity Statement*: Patient is in hospital for management of acute CVA. Time Spent in Patient Care: Greater than 35 minutes (>than 50% of time spent in counselling and/or direct pt care on unit). Coding Level of Care Code Acute Endless Track Vehicle Supervisor for Jasper Fwd Exam Detailed Diagnoses Cerebrovascular accident I63.9
[2022-02-11] MEDS: clopidogrel 75 mg Tablet PO (10:38)
--- NOTE | 2022-02-11 11:18 | PM.CONSULT ---
Providers/Reason For Consult Consulting Physician/Specialty*: Dr. Lopez, cardiology Reason for Consult*: CVA, concern for PFO on transthoracic echo Attending Physician: Robert Garcia MD History of Present Illness History of Present Illness Eran Shi is a 51 year old male presented with chief complaint of acute onset of right upper extremity weakness started around noon and since then it has progressively worsened. He is also having slurred speech. CT head without contrast:?There is suspected old infarct involving the right frontal lobe medially just anterior to the lateral ventricle. Questionable old infarct, involving the left basal ganglia. There is mild atrophy and small vessel ischemic changes. There is no intracranial blood. CTA? head and neck:No large vessel occlusion. EKG: Sinus rhythm. Echo with bubble study showed intracardiac shunt. Normal LV function. Normal RA size and RV size. Review of Systems General: Reports: 10 or more systems reviewed and unremarkable except in HPI and below Const: Denies: fever(s), chills, body aches, change in appetite or diaphoresis Card: Denies: palpitations, edema, swelling of feet/ankles, dyspnea on exertion, orthopnea or leg pain with exertion Resp: Denies: dyspnea, productive cough, wheezing or pain on inspiration GI: Denies: abdominal pain, nausea, vomiting, diarrhea or constipation : Denies: flank pain or difficulty urinating Musc: Denies: back pain, extremity pain or extremity swelling Neuro: Denies: headache(s) or confusion Medications/Allergies Home Medications Medication Instructions Recorded Confirmed Last Taken Type No Known Home Medications 02/10/22 02/10/22 Unknown History Allergies Allergy/AdvReac Type Severity Reaction Status Date / Time Penicillins Allergy Unknown Unknown Verified 02/10/22 10:56 Current Medications Generic Name Dose Route Start Last Admin Trade Name Freq PRN Reason Stop Dose Admin Aspirin 81 mg 02/11/22 09:00 02/11/22 08:31 Aspirin 81 Mg Ec Tablet PO 81 mg DAILY MARVIN Administration Atorvastatin Calcium 40 mg 02/10/22 21:00 02/10/22 20:06 Atorvastatin 40 Mg Tablet PO 40 mg BEDTIME MARVIN Administration Clopidogrel Bisulfate 75 mg 02/11/22 11:00 02/11/22 10:38 Clopidogrel 75 Mg Tablet PO 75 mg DAILY MARVIN Administration Nicotine 1 patch 02/10/22 19:36 02/10/22 20:06 Nicotine 14 Mg Patch TRANSDERMA 1 patch DAILY PRN Administration WITHDRAWAL PFSH Acute PFSH: Medical History Hypertension Social History Smoking and tobacco status: current every day smoker Alcohol intake: never Vitals/I&O/Wt Last Vital Signs Temp 99.9 F H 02/10/22 13:45 Pulse 83 02/11/22 10:00 Resp 19 H 02/11/22 10:00 BP 181/123 02/11/22 10:00 Pulse Ox 96 02/11/22 07:00 02/10/22 02/11/22 02/11/22 22:59 06:59 14:59 Intake Total 360 / 419.167 240 / 659.167 360 / 360 Output Total 350 / 350 Balance 360 / 419.167 240 / 659.167 10 / 10 Weight last 48 hrs Weight 170 lb Physical Exam Narrative: GENERAL: Averagely built and averagely nourished in no acute distress HEENT: Extraocular movement intact. No pallor or icterus. NECK: central trachea, No JVD. No carotid bruit. CARDIOVASCULAR SYSTEM: S1-S2 regular. No murmur rubs or gallops. RESPIRATORY SYSTEM: Chest clear to auscultation. No wheezes rhonchi or rubs heard. No use of accessory muscles. ABDOMEN: Soft, nontender and nondistended. Normal bowel sounds present. EXTREMITIES: No cyanosis or edema. No signs of chronic venous insufficiency. ACCOUNT ADMINISTRATOR: Patient is alert oriented ?3. Right sided weakness SKIN: Normal turgor and temperature. PSYCH: Normal insight and judgment. Data : 02/11/22 05:40 02/11/22 05:40 Other data: TTE (02/10/22) CONCLUSIONS ?1. Normal left ventricular size, systolic function and wall ?thickness, with no regional wall motion abnormalities. Left ?ventricular ejection fraction is estimated at 65 %. Normal ?diastolic function. ?2. Bubble (agitated saline) study is suggestive of intracardiac ?shunt. ?3. No prior similar studies to compare. A&P Assessment and plan (1) Cerebrovascular accident: plan for KHAI. Risks and benefits were discussed with the patient and family. Plan is to proceed for the procedure at the earliest. Status: Acute (2) Hypertension: Status: Acute Plan Intracardiac shunt on TTE Smoker Thank you for allowing me to participate in patient's care. Please feel free to call with questions or concerns. Consult Attestations Medical Necessity Statement: As per primary team Time Spent in Patient Care: 16 - 35 minutes Coding Level of Care Code Acute Sample Book Maker for Jasper Fernándezd Diagnoses Cerebrovascular accident I63.9 Hypertension I10
[2022-02-11] MEDS: enoxaparin 40 mg/0.4 mL Syringe SUBCUT (19:06)
[2022-02-11] MEDS: atorvastatin 40 mg Tablet PO (19:43)
[2022-02-12] VITALS (24 sets, daily range): BP systolic 128–195; BP diastolic 79–129; PULSE 62–115; RESP 9–23; TEMP 36.5–36.8; O2SAT 93–99
[2022-02-12 04:48] LABS: Basophils % 0.6 %; Eosinophils # 0.1 10^3/uL (0.0-0.8); Eosinophils % 1.9 %; Hematocrit 45.5 % (42.0-52.0); Hemoglobin 15.4 g/dL (11.7-16.6); Lymphocytes # 1.7 10^3/uL (0.8-4.8); Lymphocytes % 23.7 %; Mean Corpuscular HGB Conc 33.8 g/dL (30.0-36.0); Mean Corpuscular Hemoglobin 30.5 pg (28.0-34.0); Mean Corpuscular Volume 90.1 fl (80-94); Mean Platelet Volume 10.5 fL (7.4-10.4); Monocytes # 0.8 10^3/uL (0.2-0.9); Monocytes % 10.7 %; Neutrophils # 4.51 10^3/uL (1.8-7.7); Neutrophils % 62.8 %; Nucleated Red Blood Cells % 0 %; Platelet Count 327 10^3/cmm (130-400); Red Blood Count 5.05 10^6/uL (4.1-5.3); Red Cell Distribution Width 13.4 % (12.1-15.1); White Blood Count 7.2 10^3/uL (4.0-10.0)
[2022-02-12 05:10] LABS: Alanine Aminotransferase 13 U/L (0-41); Alkaline Phosphatase 77 IU/L (40-130); Anion Gap 14.1 (5-19); Aspartate Amino Transferase 13 U/L (0-40); Blood Urea Nitrogen 16 mg/dL (6-20); Calcium 8.4 mg/dL (8.5-10.5); Carbon Dioxide 25 mmol/L (22-29); Chloride 100 mmol/L (98-107); Globulin 2.6 g/dL (1.3-4.6); Glomerular Filtration Rate 101.9 mL/min (90-130); Glucose 98 mg/dL (65-115); Osmolality Calculated 281 mOsm/kg (285-295); Potassium 4.1 mmol/L (3.5-5.1); Sodium 135 mmol/L (136-145); Total Bilirubin 0.5 mg/dL (0.15-1.2); Total Protein 6.6 g/dL (6.6-8.7)
[2022-02-12] MEDS: clopidogrel 75 mg Tablet PO (08:22)
[2022-02-12] MEDS: amlodipine 10 mg Tablet PO (08:22)
[2022-02-12] MEDS: aspirin 81 mg EC Tablet PO (08:22)
--- NOTE | 2022-02-12 08:57 | PC.NURSE ---
Not appropriate staff to allow ICU nurse to accommodate patient to MRI, MRI staff stated they could provide transport and monitor patient. notified patient will be going to MRI without ICU nurse. Dr. Ramirez verified this would be okay.
--- NOTE | 2022-02-12 09:30 | MR_ITS ---
WS: [id number] MRI BRAIN WITHOUT CONTRAST HISTORY: Acute CVA COMPARISON: CT 02/10/2022. TECHNIQUE: Diffusion imaging, multiplanar T1, T2 and FLAIR imaging obtained. Acute moderate sized LEFT miguel radiata infarct converging inferiorly with the internal capsule. Non hemorrhagic infarct. Additional nonacute basal ganglia infarcts are identified. Small remote lacunar infarct in the LEFT thalamus. Mild bilateral cerebral atrophy is symmetric. Ventricles and extra-axial spaces are normal. No inferior displacement of cerebellar tonsils. The sella turcica and pituitary gland are unremarkabl e. Dural venous sinuses and [place] of [place] demonstrate no abnormality on this unenhanced studies. Paranasal sinuses: Clear. Mastoid air cells: Normal. Calvarium and scalp: Intact. MR/MR head wo con* [id number] IMPRESSION: 1. Acute, nonhemorrhagic LEFT miguel radiata infarct which converges inferiorl y along the internal capsule. 2. Additional nonacute bilateral lacunar infarcts in the basal ganglia and LEF T thalamus.
[2022-02-12] MEDS: labetalol 5 mg/mL SDV 20mL 10 MG IVP ×2 (11:36→16:58)
--- NOTE | 2022-02-12 11:42 | ANES.PREANE2 ---
Pre-Anesthetic Assessment Height/Weight: Height 1.78 m Weight 77.111 kg Temp Pulse Resp BP Pulse Ox 98.2 F 81 23 H 167/97 95 02/12/22 05:48 02/12/22 11:04 02/12/22 11:04 02/12/22 10:00 02/12/22 11:04 Preop Diagnosis: Intracardiac Shunt KHAI Familial anesthetic complications: None Was Beta Mojgan taken within 24 hours: N/A Was Clonidine taken within 24 hours: N/A Last intake: > 8 hrs Social Tobacco and No alcohol Exam alert, oriented x 3, clear to auscultation bilaterally and regular rate & rhythm Airway Mallampati: Class II Dentition: full Pulmonary None reported CV/HEM Hypertension cardiac shunt on TTE Neuropsych Cerebrovascular Accident (Occured 02/10 - R arm paralyzed) Anesthetic Plan ASA status: 3 Anesthesia: MAC Risk of > 500 ml blood loss (7ml/kg in children): No Medications/Allergies Home Medications Medication Instructions Recorded Confirmed Last Taken Type No Known Home Medications 02/10/22 02/10/22 Unknown History Allergies Allergy/AdvReac Type Severity Reaction Status Date / Time Penicillins Allergy Unknown Unknown Verified 02/10/22 10:56 Current Medications Generic Name Dose Route Start Last Admin Trade Name Freq PRN Reason Stop Dose Admin Amlodipine Besylate 10 mg 02/12/22 09:00 02/12/22 08:22 Amlodipine 10 Mg Tablet PO 10 mg DAILY MARVIN Administration Aspirin 81 mg 02/11/22 09:00 02/12/22 08:22 Aspirin 81 Mg Ec Tablet PO 81 mg DAILY MARVIN Administration Atorvastatin Calcium 40 mg 02/10/22 21:00 02/11/22 19:43 Atorvastatin 40 Mg Tablet PO 40 mg BEDTIME MARVIN Administration Clopidogrel Bisulfate 75 mg 02/11/22 11:00 02/12/22 08:22 Clopidogrel 75 Mg Tablet PO 75 mg DAILY MARVIN Administration Enoxaparin Sodium 40 mg 02/11/22 19:00 02/11/22 19:06 Enoxaparin 40 Mg/0.4 Ml Syringe SUBCUT 40 mg Q24H MARVIN Administration Nicotine 1 patch 02/10/22 19:36 02/10/22 20:06 Nicotine 14 Mg Patch TRANSDERMA 1 patch DAILY PRN Administration WITHDRAWAL Additional Medication Information Generic Name Dose Route Start Last Admin Trade Name Freq PRN Reason Stop Dose Admin Aspirin 81 mg 02/11/22 09:00 02/11/22 08:31 Aspirin 81 Mg Ec Tablet PO 81 mg DAILY MARVIN Administration Atorvastatin Calcium 40 mg 02/10/22 21:00 02/10/22 20:06 Atorvastatin 40 Mg Tablet PO 40 mg BEDTIME MARVIN Administration Nicotine 1 patch 02/10/22 19:36 02/10/22 20:06 Nicotine 14 Mg Patch TRANSDERMA 1 patch DAILY PRN Administration WITHDRAWAL [facility] Anesthesia Medical History Hypertension Social History Smoking and tobacco status: current every day smoker Alcohol intake: never Data Anesthesia : 02/12/22 03:55 02/12/22 03:55 Short CBC 02/11/22 02/12/22 Range/Units 05:40 03:55 WBC 7.6 7.2 (4.0-10.0) 10^3/uL Hgb 15.9 15.4 (11.7-16.6) g/dL Hct 46.7 45.5 (42.0-52.0) % MCV 90.7 90.1 (80-94) fl Plt Count 325 327 (130-400) 10^3/cmm Neut % (Auto) 65.3 62.8 % Neut # (Auto) 4.96 4.51 (1.8-7.7) 10^3/uL BMP 02/11/22 02/12/22 05:40 03:55 Sodium 139 135 L Potassium 4.2 4.1 Chloride 101 100 Carbon Dioxide 27 25 BUN 12 16 Creatinine 0.8 0.8 Glucose 105 98 Calcium 9.7 8.4 L Liver Function 02/11/22 02/12/22 Range/Units 05:40 03:55 Total Bilirubin 0.5 0.5 (0.15-1.2) mg/dL AST 14 13 (0-40) U/L ALT 16 13 (0-41) U/L Alkaline Phosphatase 82 77 (40-130) IU/L Albumin 4.2 4.0 (3.5-5.2) g/dL Cardiac Studies: Echocardiogram 02/10/22
--- NOTE | 2022-02-12 12:00 | USCV_ITS ---
Eran Shi Age: 51 Gender: M : 1970 Exam Date: 02/12/2022 12:07 Ordering Phys: Yoli Lopez MD ([email or web address]) Technologist: Ayesha Bagley [place]am Location[place] [facility] [place] Indication: PFO EVALUATION , CVA BP: 167 / 93 HR: 80 Rhythm: Sinus Technical Quality: Adequate MEASUREMENTS (Male / Female) Normal Values Medications Patient given IV sedation by anesthesia service, for details please refer to the anesthesia report. Complications Intubation easy. Attempts x1. No blood on probe post procedure. Patient tolerated procedure well. Proc. Components The patient was brought to the KHAI examination room in a fasting state after obtaining an informed consent. FINDINGS Left Ventricle Normal left ventricular size, systolic function and wall thickness, with no regional wall motion abnormalities. Left ventricular ejection fraction is estimated at 60 %. Right Ventricle Normal right ventricular size and systolic function. Right Atrium Normal right atrial size. Left Atrium Normal left atrial size. LA Appendage Normal left atrial appendage. Normal flow velocities in the left atrial appendage. No thrombus visualized in the left atrial appendage. IA Septum Normal interatrial septum. Patent small foramen ovale present with a [id number] shunt. Mitral Valve Structurally normal mitral valve. No mitral valve stenosis. Trace mitral valve regurgitation. Aortic Valve Structurally normal trileaflet aortic valve. No aortic valve stenosis. No aortic valve regurgitation. Tricuspid Valve Structurally normal tricuspid valve. No tricuspid valve stenosis. Trace tricuspid valve regurgitation. Pulmonic Valve Structurally normal pulmonic valve. No pulmonary valve stenosis. Trace pulmonary valve regurgitation. Pericardium No pericardial effusion. Aorta Normal size aortic root and proximal ascending aorta. Grade 3 atheroma in proximal and mid descending artery and aortic arch. CONCLUSIONS 1. Normal left ventricular size, systolic function and wall thickness, with no regional wall motion abnormalities. Left ventricular ejection fraction is estimated at 60 %. 2. Patent small foramen ovale present with a [id number] shunt. 3. No significant valvular abnormality. Yoli Lopez MD (Electronically Signed) Final Date: 15 Feb 2022 16:52 S
--- NOTE | 2022-02-12 12:38 | PM.PN ---
Subjective Subjective: Patient was seen before and after KHAI. Medications: Reviewed: Yes Vitals/I&O/Wt Last Vital Signs Temp 98.2 F 02/12/22 05:48 Pulse 81 02/12/22 11:04 Resp 23 H 02/12/22 11:04 BP 167/97 02/12/22 10:00 Pulse Ox 95 02/12/22 11:04 02/11/22 02/12/22 02/12/22 22:59 06:59 14:59 Intake Total 610 / 1210 Output Total 400 / 750 300 / 1050 200 / 200 Balance 210 / 460 -300 / 160 -200 / -200 Physical Exam Narrative: GENERAL: Averagely built and averagely nourished in no acute distress HEENT: Extraocular movement intact. No pallor or icterus. Facial droop NECK: central trachea, No JVD. No carotid bruit. CARDIOVASCULAR SYSTEM: S1-S2 regular. No murmur rubs or gallops. RESPIRATORY SYSTEM: Chest clear to auscultation. No wheezes rhonchi or rubs heard. No use of accessory muscles. ABDOMEN: Soft, nontender and nondistended. Normal bowel sounds present. EXTREMITIES: No cyanosis or edema. No signs of chronic venous insufficiency. SIGN HANGER SUPERVISOR: Patient is alert oriented ?3. Right sided weakness SKIN: Normal turgor and temperature. PSYCH: Normal insight and judgment. Data : 02/12/22 03:55 02/12/22 03:55 A&P Assessment and plan (1) Cerebrovascular accident: MRI IMPRESSION: ? 1.? Acute, nonhemorrhagic LEFT miguel radiata infarct which converges inferiorly along the internal capsule. 2.? Additional nonacute bilateral lacunar infarcts in the basal ganglia and LEFT thalamus. continue ASA, plavix and high intensity statin Small PFO on KHAI with right to left shunt. -recommend outpatient ILR placement -Follow up in 2-3 weeks with me as an outpatient Status: Acute (2) Hypertension: -agree with adding lisinopril to regimen with amlodipine. Status: Acute Plan Intracardiac shunt on TTE Suspect sleep apnea (symptoms of tiredness and fatigue with poor sleep): will probably benefit from overnight pulse ox and home sleep study. Smoker Thank you for allowing me to participate in patient's care. Please feel free to call with questions or concerns. Attestations Medical Necessity Statement*: As per primary team Procedures Time out/Consent Time Out Performed: Yes Consent for Procedure: Consent obtained from patient, Risks & Benefits reviewed and Agrees to proceed with procedure Procedure Narrative KHAI Procedure note Indication: [Acute stroke] Sedation: Propofol by anesthesia Procedure was explained to the patient in detail and informed consent was obtained. Timeout was called. After achieving adequate sedation, the probe was inserted on first attempt. No blood on the probe post procedure. Prelim report: [Normal left ventricle size and systolic function. No left atrial or left atrial appendage mass or thrombus visualized. Small PFO identified by bubble study with R-L shunt] Full report to follow. Patient tolerated the procedure well. Coding Level of Care Code Acute Automobile Damage Appraiser for kevon Fwd Diagnoses Cerebrovascular accident I63.9 Hypertension I10 Time Spent (min) 50
--- NOTE | 2022-02-12 13:18 | PC.OT ---
PATIENT NOT AVAILABLE FOR OT TREATMENT TODAY DUE TO MRI THIS MORNING AT FIRST ATTEMPT AND SCHEDULED FOR KHAI WITH SEDATION. WILL ATTEMPT OT TREATMENT AGAIN TOMORROW.
[2022-02-12] MEDS: lisinopril 10 mg Tablet PO (13:20)
--- NOTE | 2022-02-12 15:04 | PM.PN ---
Subjective Subjective: Patient has right-sided weakness Due for transesophageal echo, he has been hypertensive, received labetalol, added Nitropaste, MRI showed left miguel radiator acute CVA He does not want to go to rehab, he is willing to go for home health services outpatient PT Can be transferred out of ICU Vitals/I&O/Wt Last Vital Signs Temp 98.2 F 02/12/22 05:48 Pulse 78 02/12/22 14:51 Resp 23 H 02/12/22 11:04 BP 167/97 02/12/22 10:00 Pulse Ox 95 02/12/22 11:04 02/12/22 02/12/22 02/12/22 06:59 14:59 22:59 Output Total 300 / 1050 200 / 200 Balance -300 / 160 -200 / -200 Physical Exam Narrative: Right-sided weakness Left-sided facial droop EOMI, PERRLA Able to comprehend, slurred speech He was able to lift his right leg in the ER for about 7 seconds No strength at all of the right arm S1, S2 No signs of A. fib Abdomen soft Weak and lethargic No audible stridor or wheezing Saturating well on room air Data : 02/12/22 03:55 02/12/22 03:55 A&P Assessment and plan (1) Cerebrovascular accident: Status: Acute (2) Hypertension: Status: Acute Plan Acute left miguel radiata nonhemorrhagic stroke No signs of DVT Patient has intracardiac shunt Transesophageal echo today Rhythm is sinus no signs of A. fib MRI brain noted Patient does not want to go to any rehab Will arrange home health services with outpatient PT Continue dual antiplatelet therapy along with high-dose statins Would also recommend event monitor at the time of discharge Patient is getting hypertensive diastolic blood pressures above 100, will add Nitropaste, labetalol for as needed use Target blood pressure systolic between 1 40-1 60s as permissive hypertension after stroke, diastolic pressure below 100mmhg He can be transferred out of ICU PT evaluation, he is able to eat without any choking, no signs of aspiration DVT prophylaxis Lovenox Plan to discharge him tomorrow once his blood pressure is controlled Follow-up for transesophageal echo today publicity manager updated Attestations Medical Necessity Statement*: Discharge tomorrow Time Spent in Patient Care: 40mins Coding Level of Care Code Acute [employer] Machine Operator for Chg Fwd Diagnoses Cerebrovascular accident I63.9 Hypertension I10
[2022-02-12] MEDS: nitroglycerin 1 gm/inch oint Pkt 1 INCH TOPICAL ×2 (15:24→20:00)
[2022-02-12] MEDS: enoxaparin 40 mg/0.4 mL Syringe SUBCUT (18:21)
[2022-02-12] MEDS: nicotine 14 mg Patch 1 PATCH TRANSDERMA (20:00)
[2022-02-12] MEDS: atorvastatin 40 mg Tablet PO (20:00)
[2022-02-12] MEDS: acetaminophen 325 mg Tablet 650 MG PO (20:01)
[2022-02-13] VITALS (7 sets, daily range): BP systolic 105–144; BP diastolic 61–92; PULSE 74–92; RESP 16–18; TEMP 36.6–37; O2SAT 92–98
[2022-02-13] MEDS: nitroglycerin 1 gm/inch oint Pkt 1 INCH TOPICAL ×2 (03:02→09:09)
[2022-02-13 05:05] LABS: Basophils # 0.1 10^3/uL (0.0-0.1); Basophils % 0.6 %; Eosinophils # 0.2 10^3/uL (0.0-0.8); Eosinophils % 2.1 %; Hematocrit 45.4 % (42.0-52.0); Hemoglobin 14.8 g/dL (11.7-16.6); Lymphocytes # 1.9 10^3/uL (0.8-4.8); Lymphocytes % 22.1 %; Mean Corpuscular HGB Conc 32.6 g/dL (30.0-36.0); Mean Corpuscular Hemoglobin 30.3 pg (28.0-34.0); Mean Corpuscular Volume 92.8 fl (80-94); Mean Platelet Volume 10.3 fL (7.4-10.4); Monocytes % 10.9 %; Neutrophils # 5.55 10^3/uL (1.8-7.7); Nucleated Red Blood Cells % 0 %; Platelet Count 312 10^3/cmm (130-400); Red Blood Count 4.89 10^6/uL (4.1-5.3); Red Cell Distribution Width 13.6 % (12.1-15.1); White Blood Count 8.7 10^3/uL (4.0-10.0)
[2022-02-13 05:32] LABS: Alanine Aminotransferase 11 U/L (0-41); Alkaline Phosphatase 75 IU/L (40-130); Anion Gap 15.1 (5-19); Aspartate Amino Transferase 11 U/L (0-40); Blood Urea Nitrogen 15 mg/dL (6-20); Calcium 8.5 mg/dL (8.5-10.5); Carbon Dioxide 23 mmol/L (22-29); Chloride 100 mmol/L (98-107); Globulin 2.4 g/dL (1.3-4.6); Glomerular Filtration Rate 101.9 mL/min (90-130); Glucose 92 mg/dL (65-115); Osmolality Calculated 278 mOsm/kg (285-295); Potassium 4.1 mmol/L (3.5-5.1); Sodium 134 mmol/L (136-145); Total Bilirubin 0.6 mg/dL (0.15-1.2); Total Protein 6.4 g/dL (6.6-8.7)
[2022-02-13 06:28] LABS: Glucose Point of Care 100 mg/dL (70-110)
[2022-02-13] MEDS: lisinopril 10 mg Tablet PO (09:06)
[2022-02-13] MEDS: aspirin 81 mg EC Tablet PO (09:06)
[2022-02-13] MEDS: clopidogrel 75 mg Tablet PO (09:06)
[2022-02-13] MEDS: amlodipine 10 mg Tablet PO (09:06)
--- NOTE | 2022-02-13 11:03 | P.DS_ITS ---
Discharge Providers Date of Admission: 02/10/22 11:13 Date of Discharge: February 13, 2022 Attending Provider at Admission: Robert Garcia MD Attending Provider at Discharge: Karen Ramirez MD Diagnoses at Discharge Discharge Diagnosis (1) Cerebrovascular accident: Status: Acute (2) Hypertension: Status: Acute Reason for Visit Reason for Visit: RIGHT SIDED WEAKNESS Hospital Course Hospital Course 51 year old male with no significant past medical history was brought in with chief complaint of acute onset of right upper extremity weakness as well as slurred speech. Did not qualify for tPA on admission, CT head revealed old infarct involving the right frontal lobe medially just anterior to the lateral ventricle. Questionable old infarct, involving the left basal ganglia. There is mild atrophy and small vessel ischemic changes. There is no intracranial blood. CTA? head and neck: No large vessel occlusion. 2D Echo with bubble study has shown intra cardiac shunt, Small PFO on KHAI with right to left shunt. -recommend outpatient ILR placement MRI head showed left miguel radiata acute CVA nonhemorrhagic stroke. No signs of DVT. For his hypertension: I will add lisinopril, amlodipine, Patient will follow up with Dr. Lopez, will need outpatient ILR placement for small PFO. Event monitor for 3 weeks Overnight pulse oximeter did not show any signs of hypoxia most of the saturations remain between 90 to 99% on room air, he did not qualify for sleep study He will be discharged on aspirin, Plavix and high intensity statins. He will get prescription for outpatient physical therapy Family has arranged a walker for him at home, sister has been updated Physical Exam Narrative: Right-sided weakness Left-sided facial droop EOMI, PERRLA Able to comprehend, slurred speech He was able to lift his right leg in the ER for about 7 seconds No strength at all of the right arm S1, S2 No signs of A. fib Abdomen soft Weak and lethargic No audible stridor or wheezing Saturating well on room air Discharge Data Studies Completed and Pending Completed Studies During Hospitalization Category Date Time Status CT head wo con* [id number] Urgent Cat Scan 02/10/22 09:31 Completed CTA head neck [CT angio headneck* [id number]/[id number]] Stat Cat Scan 02/10/22 09:57 Completed MR head wo con* [id number] Routine MRI 02/12/22 09:30 Completed CV. echo w/w bubble cont [id number] Routine Ultrasound 02/10/22 12:52 Completed US venous duplex lower extremity bilat [CV venous Ultrasound 02/11/22 07:53 [place] [id number]] Routine Pending at discharge Category Date Time Status CV. echo transesophageal [id number] Routine Ultrasound 02/12/22 12:00 Taken Radiology Impressions Head CT 02/10/22 09:31 IMPRESSION: Chronic changes with no acute intracranial blood. Given the findings consider MRI to evaluate for an acute area of ischemia. Head/Neck CTA 02/10/22 09:57 IMPRESSION: No large vessel occlusion. Unremarkable CT head. IMPRESSION: 1. No arterial abnormality. 2. Obscuration of the posterior aspect of the oropharynx. REFERENCES: NASCET CRITERIA. The degree of internal carotid artery stenosis is based on NASCET criteria. Normal is no stenosis. Mild is less than 50% stenosis. Moderate is 50-69% stenosis. Severe is 70% to 99% stenosis. Total occlusion is no detectable patent lumen. Venous Duplex 02/11/22 07:53 IMPRESSION: No evidence of deep vein thrombosis in the right or left lower extremity. Head MRI 02/12/22 09:30 IMPRESSION: 1. Acute, nonhemorrhagic LEFT miguel radiata infarct which converges inferiorly along the internal capsule. 2. Additional nonacute bilateral lacunar infarcts in the basal ganglia and LEFT thalamus. Laboratory Results WBC 8.7 10^3/uL (4.0-10.0) 02/13/22 04:34 RBC 4.89 10^6/uL (4.1-5.3) 02/13/22 04:34 Hgb 14.8 g/dL (11.7-16.6) 02/13/22 04:34 Hct 45.4 % (42.0-52.0) 02/13/22 04:34 MCV 92.8 fl (80-94) 02/13/22 04:34 MCH 30.3 pg (28.0-34.0) 02/13/22 04:34 MCHC 32.6 g/dL (30.0-36.0) 02/13/22 04:34 RDW 13.6 % (12.1-15.1) 02/13/22 04:34 Plt Count 312 10^3/cmm (130-400) 02/13/22 04:34 MPV 10.3 fL (7.4-10.4) 02/13/22 04:34 Neut % (Auto) 64.0 % 02/13/22 04:34 Lymph % (Auto) 22.1 % 02/13/22 04:34 [place] % (Auto) 10.9 % 02/13/22 04:34 Eos % (Auto) 2.1 % 02/13/22 04:34 Baso % (Auto) 0.6 % 02/13/22 04:34 Neut # (Auto) 5.55 10^3/uL (1.8-7.7) 02/13/22 04:34 Lymph # (Auto) 1.9 10^3/uL (0.8-4.8) 02/13/22 04:34 [place] # (Auto) 1.0 10^3/uL (0.2-0.9) H 02/13/22 04:34 Eos # (Auto) 0.2 10^3/uL (0.0-0.8) 02/13/22 04:34 Baso # (Auto) 0.1 10^3/uL (0.0-0.1) 02/13/22 04:34 Nucleated RBC % (auto) 0 % 02/13/22 04:34 Nucleated RBCs # 0.0 /100WBC 02/13/22 04:34 PT 13.60 SECONDS (12.1-14.9) 02/10/22 08:55 INR 1.01 (0.8-1.2) 02/10/22 08:55 APTT 33.9 SECONDS (23.9-36.7) 02/10/22 08:55 Sodium 134 mmol/L (136-145) L 02/13/22 04:34 Potassium 4.1 mmol/L (3.5-5.1) 02/13/22 04:34 Chloride 100 mmol/L (98-107) 02/13/22 04:34 Carbon Dioxide 23 mmol/L (22-29) 02/13/22 04:34 Anion Gap 15.1 (5-19) 02/13/22 04:34 BUN 15 mg/dL (6-20) 02/13/22 04:34 Creatinine 0.8 mg/dL (0.7-1.2) 02/13/22 04:34 GFR Calculation 101.9 mL/min (90-130) 02/13/22 04:34 Glucose 92 mg/dL (65-115) 02/13/22 04:34 POC Glucose 100 mg/dL (70-110) 02/13/22 06:25 Estimat Average Glucose 108 02/11/22 05:40 Hemoglobin A1c 5.4 % (4.0-6.0) 02/11/22 05:40 Calculated Osmolality 278 mOsm/kg (285-295) L 02/13/22 04:34 Calcium 8.5 mg/dL (8.5-10.5) 02/13/22 04:34 Magnesium 2.3 mg/dL (1.7-2.3) 02/11/22 05:40 Total Bilirubin 0.6 mg/dL (0.15-1.2) 02/13/22 04:34 AST 11 U/L (0-40) 02/13/22 04:34 ALT 11 U/L (0-41) 02/13/22 04:34 Alkaline Phosphatase 75 IU/L (40-130) 02/13/22 04:34 Total Protein 6.4 g/dL (6.6-8.7) L 02/13/22 04:34 Albumin 4.0 g/dL (3.5-5.2) 02/13/22 04:34 Globulin 2.4 g/dL (1.3-4.6) 02/13/22 04:34 Triglycerides 135 mg/dL (0-150) 02/11/22 05:40 Triglycerides Cancelled 02/11/22 05:40 Cholesterol 183 mg/dL (0-200) 02/11/22 05:40 Cholesterol Cancelled 02/11/22 05:40 LDL Cholesterol, Calc 128 mg/dL (50-129) 02/11/22 05:40 LDL Cholesterol, Calc Cancelled 02/11/22 05:40 HDL Cholesterol 28 mg/dL (60-100) L 02/11/22 05:40 HDL Cholesterol Cancelled 02/11/22 05:40 LDL/HDL Ratio 4.57 RATIO (0.00-3.22) H 02/11/22 05:40 LDL/HDL Ratio Cancelled 02/11/22 05:40 Cholesterol/HDL Ratio 6.54 mg/dL (1.0-5.00) H 02/11/22 05:40 Cholesterol/HDL Ratio Cancelled 02/11/22 05:40 Urine Color Colorless (Yellow) 02/10/22 10:51 Urine Appearance Clear (CLEAR) 02/10/22 10:51 Urine pH 8 (5-7) H 02/10/22 10:51 Ur Specific [place] 1.010 (1.005-1.030) 02/10/22 10:51 Urine Protein Neg (Negative) 02/10/22 10:51 Urine Glucose (UA) Norm (Normal) 02/10/22 10:51 Urine Ketones Negative (Negative) 02/10/22 10:51 Urine Blood Neg (Negative) 02/10/22 10:51 Urine Nitrate Negative (Negative) 02/10/22 10:51 Urine Bilirubin Neg (Negative) 02/10/22 10:51 Prot Sulfosalicylic Acd Negative (Negative) 02/10/22 10:51 Urine Urobilinogen Norm mg/dL (Negative) 02/10/22 10:51 Ur Leukocyte Esterase Negative (Negative) 02/10/22 10:51 Urine Opiates Screen Negative ng/mL (Negative) 02/10/22 10:51 Ur Barbiturates Screen Negative ng/mL (Negative) 02/10/22 10:51 Ur Phencyclidine Scrn Negative ng/mL (Negative) 02/10/22 10:51 Ur Amphetamines Screen Negative ng/mL (Negative) 02/10/22 10:51 U Benzodiazepines Scrn Negative ng/mL (Negative) 02/10/22 10:51 Urine Cocaine Screen Negative ng/mL (Negative) 02/10/22 10:51 U Marijuana (THC) Screen Positive ng/mL (Negative) H 02/10/22 10:51 Vitals Last Vital Signs Temp 98.4 F 02/13/22 09:00 Pulse 80 02/13/22 09:00 Resp 16 02/13/22 09:00 BP 142/72 02/13/22 09:00 Pulse Ox 96 02/13/22 09:00 Discharge Plan Discharge Patient Disposition: Home Condition: Stable Prescriptions: New atorvastatin 40 mg Tablet 40 mg PO BEDTIME Qty: 60 4RF amlodipine 10 mg Tablet 10 mg PO DAILY Qty: 60 4RF lisinopril 10 mg Tablet 20 mg PO DAILY Qty: 60 6RF aspirin 81 mg Tablet,Delayed Release (Dr/Ec) 81 mg PO DAILY Qty: 60 6RF clopidogrel 75 mg Tablet 75 mg PO DAILY Qty: 60 4RF Discharge Orders: Discharge Order (Routine); Ordered 02/13/22 Ordered By: Karen Ramirez Other Ambulatory Orders: MCT/Event Monitor 21 Days (Routine) Timeframe: 3 Weeks Facility: [facility] - Location: Radiology Ordered By: Karen Ramirez Physical Therapy Eval and Treat Outpatient (Order) Timeframe: 3 Months Facility: [facility] - Location: Physical Therapy Ordered By: Karen Ramirez Referrals: Yoli Lopez MD [Physician] - 2 weeks Discharge Diet: Cardiac Discharge Activity: Increase activity as tolerated Patient Instructions: Opioid Safety Discharge Attestations Time Spent in Discharge Care*: less than 30 min Quality Metrics Clinical Quality Measures [ No reported AMI, CVA or VTE this stay] Coding Level of Care Code Acute [facility] note Diagnoses Cerebrovascular accident I63.9 Hypertension I10
[2022-02-13 11:57] LABS: Glucose Point of Care 91 mg/dL (70-110)
== END 2022-02-13 12:04 | disposition home or self-care (01) | DRG 66 ==
LOC: ER 10:36 → ICU 11:27 → MEDSURG 02-12 21:00
PROVIDERS: Admitting Provider Internal Medicine; Emergency Provider Family Medicine; Visit Provider Internal Medicine
DX: I63.9 Cerebral infarction, unspecified (principal); R47.1 Dysarthria and anarthria; R29.810 Facial weakness; G83.21 Monoplegia of upper limb affecting right dominant side; R27.0 Ataxia, unspecified; I10 Essential (primary) hypertension; R29.710 NIHSS score 10; F17.200 Nicotine dependence, unspecified, uncomplicated; Z86.73 Personal history of transient ischemic attack (TIA), and cerebral infarction without residual deficits
CPT/HCPCS: 36415; 36416; 70450; 70496; 70498; 70551; 80053; 80061; 80306; 81003; 82962; 83036; 83735; 85025; 85610; 85730; 92507; 92523; 92526; 92610; 93005; 93312; 93320; 93325; 93970; 96372; 96374; 96375; 97110; 97116; 97161; 97166; 97530; 99285; C8929; J1650; J2704; J3010; J3490; Q9967

== ENCOUNTER → 2022-07-19 11:45 | Outpatient (BNVA) | payer BC, MEDICAID, SELFPAY | PROVIDERS: Visit Provider Internal Medicine Cardiovascular Disease | DX: I63.9 Cerebral infarction, unspecified (principal) | CPT/HCPCS: 36415; 80053; 80061 ==

== ENCOUNTER → 2024-03-03 10:42 | Outpatient (BNVA) | payer SELFPAY | PROVIDERS: Visit Provider Nurse Practitioner Family | DX: E78.5 Hyperlipidemia, unspecified (principal) | CPT/HCPCS: 36415; 80061 ==